=== PATIENT | female | born 1960 | race Caucasian/White ===

== ENCOUNTER → 2024-03-10 | Outpatient (REF) | payer OTHER ==
[~2024-03-10] MED LIST: IOPAMIDOL 370 MG/ML 100 ML INFUS..BTL INJ ONE; METOPROLOL TARTRATE INJ 1 MG/ML VIAL ONE; NITROGLYCERIN 0.4 MG SUBL ONE
[2024-03-10 08:44] LABS: CREATININE, SERUM 0.88 mg/dL (0.57-1.11)
== END ==
LOC: CT 07:48
PROVIDERS: ATTEND Internal Medicine Cardiovascular Disease
DX: I25.119 Atherosclerotic heart disease of native coronary artery with unspecified angina pectoris (principal); R00.1 Bradycardia, unspecified; E78.2 Mixed hyperlipidemia; R42 Dizziness and giddiness; I10 Essential (primary) hypertension
CPT/HCPCS: 36415; 75574; 82565; 84520; Q9967; 75580